=== PATIENT | male | born 1945 | race Caucasian/White ===

== ENCOUNTER → 2022-10-08 | Outpatient (CLI) | payer MEDICARE | LOC: RAD 11:07 | DX: I10 Essential (primary) hypertension (principal) ==

== ENCOUNTER → 2024-06-10 | Outpatient (CLI) | payer MEDICARE ==
[2024-06-10 10:05] LABS: HEMOGLOBIN 8.3 g/dL (13.5-18.0)
== END ==
LOC: LAB 09:33
PROVIDERS: Internal Medicine
DX: D46.21 Refractory anemia with excess of blasts 1 (principal)

== ENCOUNTER 2024-06-26 14:23 | Observation (INO) | payer MEDICARE ==
[~2024-06-26] VITALS: Ht 175.3 cm; Wt 92.7 kg
[~2024-06-26 14:23] MED LIST: ATORVASTATIN CA10 MG PO; FLUCONAZOLE200 MG PO; HYGROTON 2525 MG/TAB PO; LEVOFLOXACIN500 M1 PO; NORVASC 10MG10 MG PO; ZESTRIL40 M1 PO; ZOVIRAX400 MG PO
[2024-06-26] MEDS ORDERED: NS 1,000 ML IV SCH ×2 (15:00→18:15)
[2024-06-26 15:29] VITALS: BP 106/62
[2024-06-26 16:01] LABS: ALBUMIN 3.5 g/dL (3.4-4.8)
[2024-06-26 16:02] LABS: CALCIUM 9.1 mg/dL (8.3-10.5)
[2024-06-26 16:02] LABS: HEMOGLOBIN 10.9 g/dL (13.5-18.0); MEAN CELL VOLUME 108 fl (78-100); MEAN CORPUSCULAR HEMOGLOBIN 38 pg (27-31); MEAN CORPUSCULAR HGB CONC 35 g/dL (33-37); PLATELET COUNT 91 K/mm3 (130-400); RED BLOOD COUNT 2.86 M/mm3 (4.20-5.60); RED CELL DISTRIBUTION WIDTH 20.2 % (11.5-14.5)
[2024-06-26 16:03] LABS: TOTAL PROTEIN 6.3 g/dL (6.2-8.1)
[2024-06-26 16:05] LABS: TOTAL BILIRUBIN 0.8 mg/dL (0.2-1.2)
[2024-06-26 16:32] LABS: LYMPHOCYTE 42 % (20-51); MONOCYTE 6 % (3-10); NEUTROPHILS 44 % (42-75); WHITE BLOOD COUNT 0.6 K/mm3 (4.8-10.8)
[2024-06-26 16:33] LABS: POLYCHROMASIA 1+
[2024-06-26] MEDS ORDERED: HYDROCHLOROTHIA50 M1 (17:01)
[2024-06-26] MEDS ORDERED: Polyethylene Glycol 3350 Powder 17 GM PACKET PO PRN (17:45)
[2024-06-26] MEDS ORDERED: ATORVASTATIN CA20 MG PO (17:50)
[2024-06-26] MEDS ORDERED: Famotidine 20 MG TAB PO PRN (18:00)
[2024-06-26] MEDS ORDERED: Docusate Sodium 100 MG CAP PO PRN (18:00)
[2024-06-26 19:00] VITALS: BP 115/68
[2024-06-26 23:00] VITALS: BP 127/70
[2024-06-26 23:38] LABS: URINE WBC 0 /hpf (0-3)
[2024-06-27 01:07] LABS: PH-URINE 5.5 (5.0 - 8.0); URINE APPEARANCE CLEAR (CLEAR); URINE COLOR YELLOW (YELLOW); URINE PROTEIN(semi-quant) NEGATIVE (NEGATIVE)
[2024-06-27 01:08] LABS: URINE BILIRUBIN NEGATIVE (NEGATIVE); URINE BLOOD TRACE-INTACT (NEGATIVE); URINE GLUCOSE TRACE (NEGATIVE); URINE KETONE NEGATIVE (NEGATIVE); URINE LEUKOCYTE ESTERASE NEGATIVE (NEGATIVE); URINE NITRATE NEGATIVE (NEGATIVE)
[2024-06-27 03:51] VITALS: BP 113/63
[2024-06-27 06:12] LABS: HEMATOCRIT 18.1 % (42.0-52.0); MEAN CELL VOLUME 109 fl (78-100); MEAN CORPUSCULAR HEMOGLOBIN 39 pg (27-31); MEAN CORPUSCULAR HGB CONC 35 g/dL (33-37); PLATELET COUNT 93 K/mm3 (130-400); RED CELL DISTRIBUTION WIDTH 20.2 % (11.5-14.5)
[2024-06-27 06:18] LABS: HEMOGLOBIN 6.4 g/dL (13.5-18.0); RED BLOOD COUNT 1.66 M/mm3 (4.20-5.60); WHITE BLOOD COUNT 0.7 K/mm3 (4.8-10.8)
[2024-06-27 06:20] LABS: CALCIUM 8.3 mg/dL (8.3-10.5)
[2024-06-27 06:21] LABS: TOTAL PROTEIN 5.2 g/dL (6.2-8.1)
--- NOTE | 2024-06-27 06:21 | NUR ---
This am lab called to notify a critical result of hgb 6.4, wbc 0.7. provider Fang ASHFORD was notified, no new orders at this time. will notify dayshift.
[2024-06-27 06:23] LABS: TOTAL BILIRUBIN 0.7 mg/dL (0.2-1.2)
--- NOTE | 2024-06-27 07:00 | NUR ---
RESUMED CARE FROM TAMERA HARRELL.
[2024-06-27 07:03] LABS: LYMPHOCYTE 60 % (20-51); MONOCYTE 4 % (3-10); NEUTROPHILS 36 % (42-75)
[2024-06-27 07:26] VITALS: BP 108/64
[2024-06-27] MEDS ORDERED: PHENERGAN 25 TA25 MG PO (09:24)
--- NOTE | 2024-06-27 10:25 | NUR ---
DISCHARGE INSTRUCTIONS REVIEWED WITH PATIENT AND . PATIENT ALERT AND ORIENTED X4. DENIES PAIN, HEADACHE, SOA, DIZZINESS, N/V/D. ABRASIONS TO LEFT FOREARM, RIGHT KNEE, AND BRIDGE OF NOSE FROM PRIOR FALLS. LSCTA. DISCUSSED C WILL CONTACT PATIENT WHEN BLOOD ARRIVES FOR OUTPATIENT BLOOD TRANSFUSION PER PHYSICIAN ORDER. ENCOURAGED TO DRINK 1-2L OF WATER A DAY. ALL QUESTIONS ANSWERED, PATIENT AND VERBALIZED UNDERSTANDING. PATIENT ASSISTED VIA W/C TO POV WITHOUT INCIDENT.
== END 2024-06-27 10:50 | disposition home or self-care (01) ==
LOC: ED 14:23 → MED/SURG 17:30
PROVIDERS: Physician Assistant; ADMIT Internal Medicine
DX: N17.9 Acute kidney failure, unspecified (principal); I95.1 Orthostatic hypotension; C95.90 Leukemia, unspecified not having achieved remission; I10 Essential (primary) hypertension; E78.5 Hyperlipidemia, unspecified; Z79.899 Other long term (current) drug therapy
CPT/HCPCS: G0378; J7030

== ENCOUNTER → 2024-06-30 | Outpatient (CLI) | payer MEDICARE ==
[~2024-06-30] MED LIST changes: +ATORVASTATIN CA20 MG PO; +HYDROCHLOROTHIA50 M1; +PHENERGAN 25 TA25 MG PO
[2024-06-30 12:24] LABS: HEMATOCRIT 27.5 % (42.0-52.0); HEMOGLOBIN 9.6 g/dL (13.5-18.0)
== END ==
LOC: LAB 12:10
PROVIDERS: Internal Medicine
DX: Z01.89 Encounter for other specified special examinations (principal)

== ENCOUNTER → 2024-07-03 | Outpatient (CLI) | payer MEDICARE ==
[2024-07-03 15:03] LABS: HEMATOCRIT 26.9 % (42.0-52.0); HEMOGLOBIN 9.1 g/dL (13.5-18.0); MEAN CELL VOLUME 106 fl (78-100); MEAN CORPUSCULAR HEMOGLOBIN 36 pg (27-31); MEAN CORPUSCULAR HGB CONC 34 g/dL (33-37); MEAN PLATELET VOLUME 9.8 fl (7.4-10.4); PLATELET COUNT 114 K/mm3 (130-400); RED BLOOD COUNT 2.55 M/mm3 (4.20-5.60); RED CELL DISTRIBUTION WIDTH 19.5 % (11.5-14.5)
[2024-07-03 15:07] LABS: ALBUMIN 3.2 g/dL (3.4-4.8)
[2024-07-03 15:08] LABS: CALCIUM 8.5 mg/dL (8.3-10.5)
[2024-07-03 15:09] LABS: TOTAL PROTEIN 6.1 g/dL (6.2-8.1)
[2024-07-03 15:11] LABS: TOTAL BILIRUBIN 0.9 mg/dL (0.2-1.2)
[2024-07-03 15:13] LABS: WHITE BLOOD COUNT 1.5 K/mm3 (4.8-10.8)
[2024-07-03 15:31] LABS: LYMPHOCYTE 40 % (20-51); METAMYELOCYTE 8 % (0-0); MONOCYTE 8 % (3-10); NEUTROPHILS 44 % (42-75)
== END ==
LOC: LAB 14:41
PROVIDERS: Internal Medicine
DX: D46.21 Refractory anemia with excess of blasts 1 (principal)

== ENCOUNTER → 2024-07-17 | Outpatient (CLI) | payer MEDICARE ==
[2024-07-17 12:45] LABS: HEMATOCRIT 19.8 % (42.0-52.0); MEAN CELL VOLUME 102 fl (78-100); MEAN CORPUSCULAR HEMOGLOBIN 35 pg (27-31); MEAN CORPUSCULAR HGB CONC 34 g/dL (33-37); MEAN PLATELET VOLUME 9.8 fl (7.4-10.4); PLATELET COUNT 56 K/mm3 (130-400); RED CELL DISTRIBUTION WIDTH 18.6 % (11.5-14.5)
[2024-07-17 12:49] LABS: RED BLOOD COUNT 1.95 M/mm3 (4.20-5.60)
[2024-07-17 12:50] LABS: HEMOGLOBIN 6.8 g/dL (13.5-18.0)
[2024-07-17 12:51] LABS: ALBUMIN 3.6 g/dL (3.4-4.8)
[2024-07-17 12:52] LABS: CALCIUM 9.2 mg/dL (8.3-10.5)
[2024-07-17 12:54] LABS: TOTAL PROTEIN 6.8 g/dL (6.2-8.1)
[2024-07-17 12:55] LABS: TOTAL BILIRUBIN 0.6 mg/dL (0.2-1.2)
[2024-07-17 13:03] LABS: LYMPHOCYTE 44 % (20-51); MONOCYTE 8 % (3-10); NEUTROPHILS 32 % (42-75)
[2024-07-17 13:04] LABS: METAMYELOCYTE 4 % (0-0)
== END ==
LOC: LAB 12:26
PROVIDERS: Internal Medicine
DX: D46.21 Refractory anemia with excess of blasts 1 (principal)

== ENCOUNTER 2024-07-19 17:26 | Outpatient (RCR) | payer MEDICARE ==
[2024-07-19 17:40] LABS: HEMATOCRIT 18.3 % (42.0-52.0); MEAN CELL VOLUME 102 fl (78-100); MEAN CORPUSCULAR HEMOGLOBIN 35 pg (27-31); MEAN CORPUSCULAR HGB CONC 34 g/dL (33-37); MEAN PLATELET VOLUME 9.6 fl (7.4-10.4); PLATELET COUNT 57 K/mm3 (130-400); RED CELL DISTRIBUTION WIDTH 18.7 % (11.5-14.5); WHITE BLOOD COUNT 2.4 K/mm3 (4.8-10.8)
[2024-07-19 17:43] LABS: RED BLOOD COUNT 1.79 M/mm3 (4.20-5.60)
[2024-07-19 17:50] LABS: HEMOGLOBIN 6.3 g/dL (13.5-18.0)
[2024-07-19 19:31] LABS: MONOCYTE 2 % (3-10)
[2024-07-19 19:33] LABS: BAND 4 % (0-10); LYMPHOCYTE 60 % (20-51); METAMYELOCYTE 3 % (0-0); MYELOCYTE 2 % (0-0)
[2024-07-19 19:34] LABS: NEUTROPHILS 29 % (42-75)
[2024-07-19 19:35] LABS: HYPOCHROMIA 2+; OVALOCYTES 2+; SCHISTOCYTES 1+
== END 2024-07-20 ==
LOC: AMSURD
PROVIDERS: Internal Medicine
DX: D46.21 Refractory anemia with excess of blasts 1 (principal)

== ENCOUNTER → 2024-07-22 | Outpatient (CLI) | payer MEDICARE ==
[2024-07-22 11:03] LABS: HEMATOCRIT 24.4 % (42.0-52.0); HEMOGLOBIN 8.2 g/dL (13.5-18.0); MEAN CORPUSCULAR HEMOGLOBIN 32 pg (27-31); MEAN CORPUSCULAR HGB CONC 34 g/dL (33-37); MEAN PLATELET VOLUME 9.6 fl (7.4-10.4); PLATELET COUNT 54 K/mm3 (130-400); RED BLOOD COUNT 2.55 M/mm3 (4.20-5.60); RED CELL DISTRIBUTION WIDTH 19.8 % (11.5-14.5); WHITE BLOOD COUNT 2.1 K/mm3 (4.8-10.8)
[2024-07-22 11:07] LABS: MEAN CELL VOLUME 96 fl (78-100)
[2024-07-22 12:23] LABS: BAND 8 % (0-10); LYMPHOCYTE 57 % (20-51); METAMYELOCYTE 7 % (0-0); MONOCYTE 2 % (3-10); MYELOCYTE 3 % (0-0); NEUTROPHILS 21 % (42-75)
== END ==
LOC: LAB 10:49
PROVIDERS: Internal Medicine
DX: D46.21 Refractory anemia with excess of blasts 1 (principal)

== ENCOUNTER → 2024-08-03 | Outpatient (CLI) | payer MEDICARE ==
[~2024-08-03] VITALS: Ht 175.3 cm; Wt 92.7 kg
[~2024-08-03] MED LIST changes: +Acetaminophen 325 MG TAB PO ONE; +NS 250 ML IV ONE; +diphenhydrAMINE 25 MG CAP PO ONE
[2024-08-03 16:10] VITALS: BP 167/77
--- NOTE | 2024-08-03 16:40 | NUR ---
THIS RN TO ATTEMPT TO ACCESS PORT, UNABLE TO GET BLOOD RETURN, ONCE FLUSHED AREA NOTED TO BE RAISED. PORT DEACCESSED. ANOTHER RN TO ATTEMPT, SAME RESULT. PORT NOTED TO BE MOBILE UNDER THE SKIN. IV ACCESS OBTAINED.
[2024-08-03 17:02] LABS: HEMATOCRIT 15.6 % (42.0-52.0); HEMOGLOBIN 5.4 g/dL (13.5-18.0)
[2024-08-03 17:10] VITALS: BP 114/70
[2024-08-03 17:15] VITALS: BP 135/74
[2024-08-03 17:20] VITALS: BP 128/74
[2024-08-03 18:10] VITALS: BP 137/80
[2024-08-03 21:00] VITALS: BP 149/74
== END ==
LOC: AMSURD 15:35
PROVIDERS: Internal Medicine
DX: D46.21 Refractory anemia with excess of blasts 1 (principal)
CPT/HCPCS: J7050; P9040

== ENCOUNTER → 2024-08-09 | Outpatient (CLI) | payer MEDICARE ==
[~2024-08-09] MED LIST changes: -Acetaminophen 325 MG TAB PO ONE; -NS 250 ML IV ONE; -diphenhydrAMINE 25 MG CAP PO ONE
[2024-08-09 14:13] LABS: HEMOGLOBIN 7.4 g/dL (13.5-18.0)
== END ==
LOC: LAB 13:48
PROVIDERS: Internal Medicine
DX: D46.21 Refractory anemia with excess of blasts 1 (principal)

== ENCOUNTER → 2024-08-10 | Outpatient (CLI) | payer MEDICARE ==
[~2024-08-10] VITALS: Ht 175.3 cm; Wt 92.7 kg
[2024-08-10] VITALS (14 sets, daily range): BP systolic 109–147; BP diastolic 67–81
[~2024-08-10] MED LIST changes: +Acetaminophen 325 MG TAB PO SCH; +NS 250 ML IV SCH; +diphenhydrAMINE 25 MG CAP PO SCH
--- NOTE | 2024-08-10 14:35 | NUR ---
KASSI Tobias RN ATTEMPTED TO ACCESS PORT. PORT UNABLE TO BE ACCESSED AT THIS TIME. ORDER OBTAINED FOR CHEST XRAY TO CHECK PORT PLACEMENT. IV ACCESS OBTAINED AT THIS TIME BY THIS NURSE. PATIENHT TOLERATED WELL.
== END ==
LOC: AMSURD 13:59
DX: D46.21 Refractory anemia with excess of blasts 1 (principal)
CPT/HCPCS: J7050; P9040

== ENCOUNTER → 2024-09-11 | Outpatient (CLI) | payer MEDICARE ==
[~2024-09-11] MED LIST changes: -Acetaminophen 325 MG TAB PO SCH; -NS 250 ML IV SCH; -diphenhydrAMINE 25 MG CAP PO SCH
[2024-09-11 12:44] LABS: HEMATOCRIT 18.8 % (42.0-52.0); MEAN CELL VOLUME 95 fl (78-100); MEAN CORPUSCULAR HEMOGLOBIN 32 pg (27-31); MEAN CORPUSCULAR HGB CONC 34 g/dL (33-37); MEAN PLATELET VOLUME 9.4 fl (7.4-10.4); PLATELET COUNT 52 K/mm3 (130-400); RED CELL DISTRIBUTION WIDTH 18.6 % (11.5-14.5)
[2024-09-11 12:45] LABS: RED BLOOD COUNT 1.98 M/mm3 (4.20-5.60)
[2024-09-11 12:49] LABS: ALBUMIN 3.8 g/dL (3.4-4.8)
[2024-09-11 12:52] LABS: TOTAL PROTEIN 6.5 g/dL (6.2-8.1)
[2024-09-11 12:54] LABS: TOTAL BILIRUBIN 0.6 mg/dL (0.2-1.2)
[2024-09-11 13:15] LABS: HEMOGLOBIN 6.4 g/dL (13.5-18.0); WHITE BLOOD COUNT 0.5 K/mm3 (4.8-10.8)
[2024-09-11 13:31] LABS: LYMPHOCYTE 80 % (20-51); NEUTROPHILS 16 % (42-75); OVALOCYTES 1+
== END ==
LOC: LAB 12:02
PROVIDERS: Internal Medicine
DX: D46.21 Refractory anemia with excess of blasts 1 (principal)

== ENCOUNTER → 2024-09-26 | Outpatient (CLI) | payer MEDICARE ==
[2024-09-26 15:21] LABS: HEMATOCRIT 19.5 % (42.0-52.0)
[2024-09-26 15:24] LABS: HEMOGLOBIN 6.7 g/dL (13.5-18.0)
== END ==
LOC: LAB 14:49
PROVIDERS: Internal Medicine
DX: D46.21 Refractory anemia with excess of blasts 1 (principal)